=== PATIENT | male | born 1990 ===

== ENCOUNTER 2018-04-16 19:11 | Emergency (ER) | payer MEDICAID ==
[~2018-04-16] VITALS: Ht 172.7 cm; Wt 85.0 kg
[2018-04-16 21:31] VITALS: BP 119/71
== END 2018-04-16 21:31 | disposition home or self-care (01) ==
LOC: ER 19:11
DX: F41.9 Anxiety disorder, unspecified (principal); F45.8 Other somatoform disorders; R06.00 Dyspnea, unspecified; F90.9 Attention-deficit hyperactivity disorder, unspecified type; F17.200 Nicotine dependence, unspecified, uncomplicated; F12.10 Cannabis abuse, uncomplicated; Z98.890 Other specified postprocedural states
CPT/HCPCS: 93005; 99283